=== PATIENT | female | born 1980 | race African-American/Black ===

== ENCOUNTER 2018-03-01 13:37 | Emergency (ER) | payer MEDICAID, OTHER ==
[~2018-03-01] VITALS: Ht 157.5 cm; Wt 87.0 kg
[~2018-03-01 13:37] MED LIST: BACT2OIN TOP; BACT800T5 PO; CEPH500T PO
[2018-03-01 13:41] VITALS: BP 120/59; PULSE 67; RESP 16; TEMP 98.3; O2SAT 100
[2018-03-01] MEDS ORDERED: CYAN100 PO (13:54)
[2018-03-01] MEDS ORDERED: FERR325T18 PO (13:54)
--- NOTE | 2018-03-01 14:14 | PD ---
HPI Chief Complaint: Dizziness Time Seen by Provider: 14:11 Travel History International Travel<30 days: No Contact w/Intl Traveler<30days: No Traveled to known affect area: No History of Present Illness HPI 38-year-old female patient with history of uterine fibroids, dysfunctional uterine bleeding, presents to the ER today because she has been bleeding for several days, was seen several days ago at [facility] and found to have anemia and low iron, started yesterday on iron pills and B12, but today starting get dizzy, states that she is still having vaginal bleeding and passing clots. She denies any chest pains, shortness of breath, or other symptoms. Modifying Factors: None Associated Signs & Symptoms: Vaginal bleeding, lightheadedness Risk Factors: Recent visit to the hospital for the same, low blood counts, low iron PFSH Past Medical History Hx Anticoagulant Therapy: No Cardiovascular Problems: No Chemotherapy: No Cerebrovascular Accident: No Diabetes: No Diminished Hearing: No Reproductive: Yes (fibroids) Respiratory: No Immunizations Current: Yes ?: Not Menopausal: Yes : 4 Para: 3 Miscarriage: 1 Tubal Ligation: Yes Past Surgical History Hysterectomy: No Social History Alcohol Use: Yes (WEEKENDS) Tobacco Use: No Substance Use: No Allergies-Medications (Allergen,Severity, Reaction): Coded Allergies: acetaminophen (Unverified Allergy, Severe, Hallucinations, 03/01/18) hydrocodone (Unverified Allergy, Severe, Hallucinations, 03/01/18) Reported Meds & Prescriptions Reported Meds & Active Scripts Active Reported Vitamin B12 (Cyanocobalamin) 100 Mcg Tab 100 Mcg PO DAILY Ferrous Sulfate 325 Mg (65 Mg Iron) Tablet 325 Mg PO DAILY Review of Systems Except as stated in HPI: all other systems reviewed are Neg Physical Exam Narrative GENERAL: Well-developed young -Citizen Of [place] female patient currently in mild distress. Awake and oriented 3. SKIN: Focused skin assessment warm/dry. HEAD: Atraumatic. Normocephalic. EYES: Pupils equal and round. No scleral icterus. No injection or drainage. ENT: No nasal bleeding or discharge. Mucous membranes pink and moist. NECK: Trachea midline. No JVD. Supple. CARDIOVASCULAR: Regular rate and rhythm. No murmur appreciated. RESPIRATORY: No accessory muscle use. Clear to auscultation. Breath sounds equal bilaterally. GASTROINTESTINAL: Abdomen soft, non-tender, nondistended. Hepatic and splenic margins not palpable. MUSCULOSKELETAL: No obvious deformities. No clubbing. No cyanosis. No edema. NEUROLOGICAL: Awake and alert. No obvious cranial nerve deficits. Motor grossly within normal limits. Normal speech. PSYCHIATRIC: Appropriate mood and affect; insight and judgment normal. Data Data Last Documented VS Vital Signs Date Time Temp Pulse Resp B/P (MAP) Pulse Ox O2 Delivery O2 Flow Rate FiO2 03/01/18 15:23 89 18 110/64 (79) 100 Room Air 03/01/18 13:41 98.3 Orders Orders Electrocardiogram (03/01/18 14:07) Ed Urine Pregnancytest Poc (03/01/18 14:07) Complete Blood Count With Diff (03/01/18 14:07) Comprehensive Metabolic Panel (03/01/18 14:07) Ecg Monitoring (03/01/18 14:07) Iv Access Insert/Monitor (03/01/18 14:07) Oximetry (03/01/18 14:07) Sodium Chloride 0.9% Flush (Ns Flush) (03/01/18 14:15) Type And Screen (03/01/18 14:12) Ed Discharge Order (03/01/18 15:53) Labs Laboratory Tests Test 03/01/18 14:25 White Blood Count 7.7 TH/MM3 Red Blood Count 3.82 MIL/MM3 Hemoglobin 8.1 GM/DL Hematocrit 26.2 % Mean Corpuscular Volume 68.7 FL Mean Corpuscular Hemoglobin 21.1 PG Mean Corpuscular Hemoglobin Concent 30.7 % Red Cell Distribution Width 17.4 % Platelet Count 455 TH/MM3 Mean Platelet Volume 7.4 FL Neutrophils (%) (Auto) 54.9 % Lymphocytes (%) (Auto) 32.1 % Monocytes (%) (Auto) 7.7 % Eosinophils (%) (Auto) 4.9 % Basophils (%) (Auto) 0.4 % Neutrophils # (Auto) 4.2 TH/MM3 Lymphocytes # (Auto) 2.5 TH/MM3 Monocytes # (Auto) 0.6 TH/MM3 Eosinophils # (Auto) 0.4 TH/MM3 Basophils # (Auto) 0.0 TH/MM3 CBC Comment AUTO DIFF Blood Urea Nitrogen 15 MG/DL Creatinine 0.71 MG/DL Random Glucose 85 MG/DL Total Protein 7.6 GM/DL Albumin 3.4 GM/DL Calcium Level 8.6 MG/DL Alkaline Phosphatase 63 U/L Aspartate Amino Transf (AST/SGOT) 24 U/L Alanine Aminotransferase (ALT/SGPT) 27 U/L Total Bilirubin LESS THAN 0.1 MG/DL Sodium Level 140 MEQ/L Potassium Level 4.0 MEQ/L Chloride Level 107 MEQ/L Carbon Dioxide Level 26.4 MEQ/L Anion Gap 7 MEQ/L Estimat Glomerular Filtration Rate 111 ML/MIN MDM Medical Decision Making Medical Screen Exam Complete: Yes Emergency Medical Condition: Yes Medical Record Reviewed: Yes Interpretation(s) Laboratory Tests Test 03/01/18 14:25 Red Blood Count 3.82 MIL/MM3 (4.00-5.30) Hemoglobin 8.1 GM/DL (11.6-15.3) Hematocrit 26.2 % (35.0-46.0) Mean Corpuscular Volume 68.7 FL (80.0-100.0) Mean Corpuscular Hemoglobin 21.1 PG (27.0-34.0) Mean Corpuscular Hemoglobin Concent 30.7 % (32.0-36.0) Red Cell Distribution Width 17.4 % (11.6-17.2) Platelet Count 455 TH/MM3 (150-450) Eosinophils (%) (Auto) 4.9 % (0.0-4.0) Total Bilirubin LESS THAN 0.1 MG/DL Differential Diagnosis Dizziness: Symptomatic anemia versus metabolic issues versus anxiety Narrative Course Patient is not . Lab work shows a hemoglobin of 8.1. Vital signs are stable in the ER. The rest of the lab work was fairly unremarkable. The last hemoglobin we have on her was 11 but that was 3 years ago, and at this point she has just started therapy for anemia. My plan would be to have her keep taking iron. We will give her OCP in order to attempt to control the dysfunctional uterine bleeding. We will have her follow-up closely with her OB/ [facility]. Return for any worsening in bleeding, or new symptoms as needed. The plan has been discussed with her and she states understanding. Diagnosis Primary Impression: Dysfunctional uterine bleeding Additional Impression: Anemia Additional Instructions: Stay on your iron pills. Go see her STRAINER TENDER this week. Return for any worsening in bleeding or new symptoms as needed. Med/Other Pt SpecificInfo: Prescription(s) given Scripts Norethindrone-Ethinyl Estradiol (Ortho-Novum ) 1-35 Mg-Mcg Tab 1 TAB PO DAILY for Control, #1 PACK 0 Refills Prov: Danae Rain MD 03/01/18 Disposition: 01 DISCHARGE HOME Condition: Stable Danae Rain MD Mar 01, 2018 14:14
[2018-03-01] MEDS ORDERED: SODIUM CHLORIDE 0.9% FLUSH 10 ML FLUSH IVF PRN (14:15)
[2018-03-01 14:27] VITALS: O2SAT 98
[2018-03-01 14:44] LABS: CHLORIDE 107 MEQ/L (98-107); SODIUM (NA) 140 MEQ/L (136-145)
[2018-03-01 14:47] LABS: CALCIUM 8.6 MG/DL (8.5-10.1)
[2018-03-01 14:48] LABS: ALBUMIN 3.4 GM/DL (3.4-5.0); BICARBONATE 26.4 MEQ/L (21.0-32.0); BLOOD UREA NITROGEN 15 MG/DL (7-18); GLUCOSE,RANDOM 85 MG/DL (74-106)
[2018-03-01 14:51] LABS: ALT (GPT) 27 U/L (10-53); AST (GOT) 24 U/L (15-37); CREATININE 0.71 MG/DL (0.50-1.00); GLOMERULAR FILTRATION RATE 111 ML/MIN (>89)
[2018-03-01 14:52] LABS: TOTAL BILIRUBIN ADULT LESS THAN 0.1 MG/DL (0.2-1.0); TOTAL PROTEIN 7.6 GM/DL (6.4-8.2)
[2018-03-01 14:54] LABS: ALKALINE PHOSPHATASE 63 U/L (45-117)
[2018-03-01 15:23] VITALS: BP 110/64; PULSE 89; RESP 18; O2SAT 100
[2018-03-01 15:43] LABS: AUTOMATED NEUTROPHIL # 4.2 TH/MM3 (1.8-7.7); BASOPHIL % 0.4 % (0.0-2.0); EOSINOPHIL # 0.4 TH/MM3 (0-0.4); EOSINOPHIL % 4.9 % (0.0-4.0); HEMATOCRIT 26.2 % (35.0-46.0); HEMOGLOBIN 8.1 GM/DL (11.6-15.3); LYMPH % 32.1 % (9.0-44.0); LYMPHOCYTE # 2.5 TH/MM3 (1.0-4.8); MEAN CELL VOLUME 68.7 FL (80.0-100.0); MEAN CORPUSCULAR HEMOGLOBIN 21.1 PG (27.0-34.0); MEAN CORPUSCULAR HGB CONC 30.7 % (32.0-36.0); MEAN PLATELET VOLUME 7.4 FL (7.0-11.0); MONO % 7.7 % (0.0-8.0); MONOCYTE # 0.6 TH/MM3 (0-0.9); NEUT % 54.9 % (16.0-70.0); PLATELET COUNT 455 TH/MM3 (150-450); RED BLOOD COUNT 3.82 MIL/MM3 (4.00-5.30); RED CELL DISTRIBUTION WIDTH 17.4 % (11.6-17.2); WHITE BLOOD COUNT 7.7 TH/MM3 (4.0-11.0)
[2018-03-01] MEDS ORDERED: ORTH1TAB PO (15:56)
[2018-03-01 15:59] LABS: OVALOCYTES 1+ (NORMAL)
[2018-03-01 17:33] VITALS: BP 128/68
--- NOTE | 2018-03-02 16:55 | EKG ---
Date Performed: 03/01/2018 Time Performed: 14:24:59 PTAGE: 38 years EKG: Sinus rhythm NORMAL ECG Since the PREVIOUS TRACING , no significant change noted PREVIOUS TRACIN07/27/2000 05.40 DOCTOR: Fuentes Forman Interpretating Date/Time 03/02/2018 16:50:38
== END 2018-03-01 18:01 | disposition home or self-care (01) ==
LOC: PHED 13:37
DX: N93.8 Other specified abnormal uterine and vaginal bleeding (principal); D64.9 Anemia, unspecified; Z79.899 Other long term (current) drug therapy; Z88.6 Allergy status to analgesic agent; Z88.5 Allergy status to narcotic agent
CPT/HCPCS: 80053; 84703; 85025; 86850; 86900; 86901; 93005; 99284